=== PATIENT | male | born 2000 | race Asian ===

== ENCOUNTER 2021-07-01 16:16 | Outpatient (CLI) | payer OTHER, SELFPAY ==
[2021-07-08 05:08] LABS: Beef <0.10 kU/L (Class 0); Chicken <0.10 kU/L (Class 0); Chocolate <0.10 kU/L (Class 0); Corn <0.10 kU/L (Class 0); Egg, Whole <0.10 kU/L (Class 0); Garlic <0.10 kU/L (Class 0); Milk (Cow) <0.10 kU/L (Class 0); Orange <0.10 kU/L (Class 0); Pea <0.10 kU/L (Class 0); Peanut <0.10 kU/L (Class 0); Pork <0.10 kU/L (Class 0); Rice <0.10 kU/L (Class 0); Soybean <0.10 kU/L (Class 0); Tomato <0.10 kU/L (Class 0); Wheat <0.10 kU/L (Class 0)
[2021-07-08 08:14] LABS: Onion <0.10 kU/L (Class 0); Pork <0.10 kU/L (Class 0)
[2021-07-13 09:09] LABS: Alternaria tenuis <0.10 kU/L (Class 0); Ash, White <0.10 kU/L (Class 0); Aspergillus fumigatus <0.10 kU/L (Class 0); Bermuda Grass <0.10 kU/L (Class 0); Birch <0.10 kU/L (Class 0); Black Walnut <0.10 kU/L (Class 0); Cat Hair / Dander,Stand 1.58 kU/L (Class III); Cedar, Mountain <0.10 kU/L (Class 0); Cladosporium herbarum <0.10 kU/L (Class 0); Cockroach, American 0.15 kU/L (Class 0/I); Cottonwood <0.10 kU/L (Class 0); D farinae Mite 6.07 kU/L (Class IV); D pteronyssinus 9.57 kU/L (Class IV); Dog Epithelia 0.18 kU/L (Class 0/I); Elm, American White <0.10 kU/L (Class 0); Immunoglobulin E 120 IU/mL (6-495); Maple/Box Elder <0.10 kU/L (Class 0); Mulberry, White <0.10 kU/L (Class 0); Oak, White <0.10 kU/L (Class 0); Pecan <0.10 kU/L (Class 0); Penicillium Notatum <0.10 kU/L (Class 0); Pigweed, Rough <0.10 kU/L (Class 0); Ragweed, Short/Common <0.10 kU/L (Class 0); Russian Thistle <0.10 kU/L (Class 0); Sheep Sorrel <0.10 kU/L (Class 0); Sycamore, American <0.10 kU/L (Class 0); Timothy Grass <0.10 kU/L (Class 0)
[2021-07-13 11:10] LABS: Mouse Urine <0.10 kU/L (Class 0)
== END 2021-07-01 23:59 | disposition home or self-care (01) ==
LOC: LAB 16:25
PROVIDERS: Visit Provider Otolaryngology
DX: T78.40XA Allergy, unspecified, initial encounter (principal)
CPT/HCPCS: 36415; 82785; 86003; 86005